=== PATIENT | male | born 1990 | race Caucasian/White ===

== ENCOUNTER 2018-11-08 17:49 | Emergency (ER) | payer OTHER ==
[2018-11-08 17:59] VITALS: BP 126/80; PULSE 87; RESP 18; TEMP 98.6
--- NOTE | 2018-11-08 18:45 | XR ---
EXAMINATION TYPE: XR ankle complete LT DATE OF EXAM: 11/08/2018 COMPARISON: NONE HISTORY: Pain and injury TECHNIQUE: 3 views FINDINGS: Ankle mortise is anatomic. I see no fracture nor dislocation. IMPRESSION: Negative left ankle exam.
--- NOTE | 2018-11-08 19:03 | ED ---
Lower Extremity Injury HPI - General Chief Complaint: Extremity Injury, Lower Stated Complaint: left ankle injury Time Seen by Provider: 11/08/18 18:02 Source: patient Mode of arrival: wheelchair Limitations: no limitations - History of Present Illness Initial Comments: Patient is a 28-year-old male presenting to emergency Department with complaints of left ankle pain that happened prior to arrival. Patient states he was playing softball when he stepped on the ball and rolling his left ankle. Patient states he is having a hard time walking on it. Patient denies any previous surgeries in the left ankle. Patient has no other complaints at this time. Upon arrival to ER, vital signs stable. Patient does attend [facility]. - Related Data Previous Rx's Medication Instructions Recorded Ibuprofen [Motrin] 600 mg PO Q8HR PRN #20 tab 11/08/18 Allergies Allergy/AdvReac Type Severity Reaction Status Date / Time No Known Allergies Allergy Verified 11/08/18 17:59 Review of Systems ROS Statement: Those systems with pertinent positive or pertinent negative responses have been documented in the HPI. ROS Other: All systems not noted in ROS Statement are negative. 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 HEAD: Atraumatic, normocephalic. EYES: Pupils equal round and reactive to light, extraocular movements intact, sclera anicteric, conjunctiva are normal. ENT: TMs normal, nares patent, oropharynx clear without exudates. Moist mucous membranes. NECK: Normal range of motion, supple without lymphadenopathy or JVD. LUNGS: Breath sounds clear to auscultation bilaterally and equal. No wheezes rales or rhonchi. HEART: Regular rate and rhythm without murmurs, rubs or gallops. ABDOMEN: Soft, nontender, normoactive bowel sounds. No guarding, no rebound. No masses appreciated. : Deferred EXTREMITIES: There is very mild swelling of the left ankle. Pain with palpation of the around the lateral malleolus. Normal range of motion, no pitting or edema. No clubbing or cyanosis. NEUROLOGICAL: Cranial nerves II through XII grossly intact. Normal speech, normal gait. PSYCH: Normal mood, normal affect. SKIN: Warm, Dry, normal turgor, no rashes or lesions noted. Limitations: no limitations Course Vital Signs 11/08/18 17:57 Temperature 98.6 F Pulse Rate 87 Respiratory 18 Rate Blood Pressure 126/80 O2 Sat by Pulse 99 Oximetry Medical Decision Making - Medical Decision Making Patient is a 28-year-old male presenting with left ankle pain after stepping on a softball while playing softball. Patient states he has pain with ambulation. On exam patient has mild swelling around the left ankle joint as well as pain with palpation on the lateral malleolus. X-rays were obtained and show no acute fractures dislocations. Was discussed with patient is most likely an ankle sprain. Patient will use compression, ice, elevation for pain and swelling control. Patient was given prescription for Motrin 600s. Patient is coming from [facility]. Patient is stable for discharge at this time. Return parameters were discussed with the patient he verbalizes understanding. Disposition Clinical Impression: Left ankle sprain Disposition: HOME SELF-CARE Condition: Stable Instructions (If sedation given, give patient instructions): Ankle Sprain (ED) Additional Instructions: Please return to the Emergency Department if symptoms worsen or any other concerns. Use ice, compression, elevation, Motrin for pain relief. Prescriptions: Ibuprofen [Motrin] 600 mg PO Q8HR PRN #20 tab PRN Reason: Pain Is patient prescribed a controlled substance at d/c from ED?: No Referrals: Jose Agustin MD [Primary Care Provider] - 1-2 days
== END 2018-11-08 19:10 | disposition home or self-care (01) ==
LOC: EC 17:49
DX: S93.402A Sprain of unspecified ligament of left ankle, initial encounter (principal); W21.07XA Struck by softball, initial encounter; Y93.64 Activity, baseball
CPT/HCPCS: 99283